=== PATIENT | female | born 1960 | race Two or more races ===

== ENCOUNTER 2019-04-24 07:41 | Emergency (ER) | payer OTHER ==
[~2019-04-24] VITALS: Ht 157.5 cm; Wt 59.0 kg
[2019-04-24 07:47] VITALS: BP 120/85
== END 2019-04-24 08:45 | disposition home or self-care (01) ==
LOC: ER 07:41
DX: Z48.01 Encounter for change or removal of surgical wound dressing (principal); I10 Essential (primary) hypertension; Z88.1 Allergy status to other antibiotic agents

== ENCOUNTER 2019-04-26 07:10 | Emergency (ER) | payer OTHER ==
[~2019-04-26] VITALS: Ht 157.5 cm; Wt 59.0 kg
[2019-04-26 07:15] VITALS: BP 156/100
== END 2019-04-26 08:25 | disposition home or self-care (01) ==
LOC: ER 07:10
DX: S21.0 Open wound of breast (principal); I10 Essential (primary) hypertension; Z76.0 Encounter for issue of repeat prescription; Z88.1 Allergy status to other antibiotic agents; X58.XXXD Exposure to other specified factors, subsequent encounter